=== PATIENT | male | born 1975 | race Two or more races ===

== ENCOUNTER 2025-03-23 00:01 | Emergency (ER) | payer OTHER, SELFPAY ==
[2025-03-23 00:11] VITALS: BP 150/107; PULSE 86; RESP 18; TEMP 36.8; O2SAT 95
[2025-03-23 00:12] VITALS: PULSE 90; RESP 20; O2SAT 99
[2025-03-23 00:14] VITALS: BMI 36.9
--- NOTE | 2025-03-23 00:22 | EKG_ITS ---
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: : 1975 Requested By: ED Temporary Provider Order Number: [id number] Reading MD: ED Temporary Provider Measurements Intervals [place] Rate: 69 P: 8 SD: 170 QRS: 3 QRSD: 116 T: 38 QT: 433 QTc: 466 Interpretive Statements SINUS RHYTHM LOW QRS VOLTAGE IN PRECORDIAL LEADS [QRS DEFLECTION < 1.0 mV IN CHEST LEADS] INCOMPLETE RIGHT BUNDLE BRANCH BLOCK [90+ ms QRS DURATION, TERMINAL R IN V1/V2, 40+ ms S IN I/aVL/V4/V5/V6] POSSIBLE ANTERIOR MYOCARDIAL INFARCTION , PROBABLY OLD [30 ms Q WAVE IN V3/V4, OR R < 0.2 mV IN V4] No previous ECG available for comparison /store/S0/[id number].pdf
--- NOTE | 2025-03-23 00:22 | XR_ITS ---
EXAMINATION: AP chest single view TECHNIQUE: AP portable upright chest single view Date and time: March 23, 2025, 0125 hours INDICATIONS: Shortness of breath weakness beginning today. FINDINGS: No significant cardiac enlargement. No pneumonia or pulmonary edema Old deformity of the right clavicle IMPRESSION: No active disease
[2025-03-23 00:51] LABS: Basophils # (Auto) 0.1 Thou/mm3 (0.0-0.2); Basophils % (Auto) 1 % (0-2.5); Eosinophils # (Auto) 0.3 Thou/mm3 (0.0-0.5); Eosinophils % (Auto) 4 % (0-10); Hematocrit 43.8 % (41.0-53.0); Hemoglobin 14.7 g/dL (13.5-16.0); Immature Granulocytes Auto 0.02 Thou/mm3 (0.00-0.00); Lymphocytes # (Auto) 2.4 Thou/mm3 (1.0-4.8); Lymphocytes % (Auto) 31 % (10-50); Mean Corpuscular HGB Conc 33.6 g/dl (31.0-37.0); Mean Corpuscular Hemoglobin 29.9 pg (25.0-35.0); Mean Corpuscular Volume 89 fL (80-100); Monocytes # (Auto) 1.1 Thou/mm3 (0.0-0.8); Monocytes % (Auto) 14 % (0-12); Neutrophils # (Auto) 3.9 Thou/mm3 (1.8-7.7); Neutrophils % (Auto) 50 % (37-80); Nucleated Red Blood Cell # 0.00 Thou/mm3 (0.00-0.00); Nucleated Red Blood Cell % 0 /100 WBC (0); Platelet Count 214 Thou/mm3 (140-440); RDW Standard Deviation 42.8 fL (35.1-43.9); Red Blood Count 4.91 Miln/mm3 (4.50-5.90); White Blood Count 7.8 Thou/mm3 (3.8-10.6)
[2025-03-23 01:09] LABS: INR 1.0 (0.9-1.3); Partial Thromboplastin Time 26.3 Seconds (22.0-36.0); Prothrombin Time 11.0 Seconds (9.0-12.2)
[2025-03-23 01:14] LABS: Alanine Aminotransferase 46 U/L (10-49); Albumin, Serum 4.7 gm/dL (3.5-5.0); Albumin/Globulin Ratio 1.7 (1.2-2.2); Alkaline Phosphatase 75 U/L (46-116); Anion Gap 12 (7-16); Aspartate Amino Transferase 107 U/L (0-34); BUN/Creatinine Ratio 21 Ratio (12-20); Bilirubin,Total 0.6 mg/dL (0.3-1.2); Blood Urea Nitrogen 31 mg/dL (9-23); Calcium 9.6 mg/dL (8.3-10.6); Calcium (Corrected) 9.6 mg/dL (8.5-10.1); Carbon Dioxide 25.0 mMol/L (20.0-31.0); Chloride 104 mMol/L (98-107); Creatinine (Component) 1.5 mg/dL (0.6-1.3); Estimated Creatinine Clearance 72.3 mL/min (>60); Globulin 2.7 gm/dL (2.3-3.5); Glucose 93 mg/dL (74-106); Magnesium 2.3 mg/dL (1.6-2.6); Osmolality,Calculated 287 (275-295); Potassium 4.0 mMol/L (3.4-5.1); Sodium 141 mMol/L (136-145); Total Protein 7.4 gm/dL (5.7-8.2); Troponin I < 0.020 ng/mL (0.0-0.045); eGFR 56 See Note
--- NOTE | 2025-03-23 03:34 | PD.EDWEAK ---
ED Weakness RME/HPI General Chief complaint: Abdominal Pain Stated complaint: BL Lower Quadrant Abdominal Pain Arrival date/time: 03/23/25 00:01 RME / HPI RME / HPI Narrative: DR. WAGNER MAIN ED EVALUATION: Patient presents with BL lower abdominal pain R > L, with occasional radiation to the flank. 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 No definitive fever, chills, nausea, or vomiting. PMH: CHF, HTN, CVA without significant neurological deficit PSH: Unremarkable Allergies: Penicillin Social: Negative Related Data Allergies Allergy/AdvReac Type Severity Reaction Status Date / Time Penicillins Allergy Verified 03/23/25 00:21 Review of Systems Review of Systems Systems Reviewed: All systems reviewed, normal except as documented Past Medical History Past Medical History NEUROLOGIC: Positive Cerebrovascular Accident (X2, APHASIA) CARDIAC: Positive Congestive Heart Failure and Hypertension ED Exam Narrative Physical exam: GEN. APPEARANCE: The patient is alert awake oriented X-3, c/o lower abdominal pain, lying down uncomfortably, does not look ill/toxic. Patient has good eye contact. Patient is cooperative. VITALS: All vitals were reviewed and the pulse ox is 95% on room air which is normal according to my interpretation. HEENT: Normocephalic, atraumatic. Pupils are equal and reactive. Oral mucosa is moist. Patent Nares NECK: Supple, nontender, no thyromegaly, no meningismus, no JVD, no step offs CHEST: Symmetrical, atraumatic, and with equal expansion , Nontender on palpation no deformity and no crepitus. CARDIOVASCULAR: Heart regular rhythm no murmur or gallop rub or extra beats. LUNGS: Clear to auscultation bilaterally with symmetrical chest rise. No laboring tachypnea or wheezing. No intercostal subcostal retraction. No rales and no rhonchi. ABDOMEN: Soft, obese, TTP BL LQ's, no guarding or rebound tenderness. There are no abnormal masses palpated. Active and normal bowel sounds. EXTREMITIES: Nontender. No edema. No cyanosis. Patient is able to move all 4 extremities well, with full ROM and good CSM. SKIN: Warm and dry, no jaundice or rashes noted. MUSCULOSKELETAL: No lubar or midline bony tenderness. There is no CVA tenderness. No paraspinal muscle spasm or tenderness. NEURO: Patient is CHRISTIANSEN x 4, Cranial nerves II through XII grossly intact. There is no focal neurologic deficits noted. 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 PSYCHIATRIC: Patient is in normal mood and affect, cooperative, no SI or HI or hallucinations. Course Quality Measures none Orders Category Date Time Status CT Screening NOW Care 03/23/25 03:44 Active EKG (ED ONLY) *Do not use* NOW Care 03/23/25 00:[address] abdomen pelvis w con Stat Exams 03/23/25 03:43 Taken EKG (ED Only) Stat Exams 03/23/25 00:22 Draft XR chest 1V portable Stat Exams 03/23/25 00:22 Taken CBC Stat Lab 03/23/25 00:37 Completed CMP [Comprehensive Metabolic Panel] Stat Lab 03/23/25 00:37 Completed Drug Screen,Urine Stat Lab 03/23/25 04:12 Completed Mag [Magnesium] Stat Lab 03/23/25 00:37 Completed PT [Prothrombin Time with INR] Stat Lab 03/23/25 00:37 Completed PTT [Partial Thromboplastin Time] Stat Lab 03/23/25 00:37 Completed Troponin I Stat Lab 03/23/25 00:37 Completed UA, C/S IF [Urinalysis, C/S if Indicated] Stat Lab 03/23/25 00:24 Ordered Urinalysis, C/S if Indicated Stat Lab 03/23/25 04:12 Completed Metoclopramide Inj [Reglan Inj] Med 03/23/25 03:40 Discontinued 5 mg IVP X1 ONE Morphine* Inj Med 03/23/25 03:36 Active 4 mg IVP Q1H PRN Vital Signs Vital signs: Vital Signs Temperature 98.2 F 03/23/25 00:11 Pulse Rate 86 03/23/25 00:11 Respiratory Rate 18 03/23/25 00:11 Blood Pressure 150/107 H 03/23/25 00:11 Pulse Oximetry (%) 95 03/23/25 00:11 Oxygen Delivery Method Room Air 03/23/25 00:11 Weakness MDM Narrative MDM Narrative:: Scribe Attestation: IHallie am scribing for and in the presence of Dr. Wagner. Provider Notation: Although this document has been carefully reviewed, there may still be some phonetic and other typographical errors. These errors are purely grammatical due to imperfections in the software program and should not be construed in any way to compromise the substance of the patient's medical care during this visit. Patient presents with BL lower abdominal pain R > L, with occasional radiation to the flank. 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 No definitive fever, chills, nausea, or vomiting. Please see PE findings. Laboratory markers including CBC, serum chemistries essentially unremarkable. UA with evidence of glucosuria and ketones presents, although no sign of infection. Toxicology screen positive for Amphetamines/Meth. Special studies such as abdomen/Pelvis CT demonstrates evidence of mild cirrhotic changes, although no acute process identified. CXR is unremarkable. Patient was hydrated with normal saline, administered low-dose narcotic analgesics/anti-emetics with mild to moderate relief. On seral evaluation patient is resting comfortably, considered stable for discharge after period of observation. Patient data External records reviewed:: [facility] previous records (No prior ED records available for review) Clinical information provided by:: patient Social determinants that could affect healthcare access:: none Patient has the following chronic illnesses:: HTN, CHF How is presenting disease/condition affected by chronic disease/condition?: exacerbated by Evaluation data The following diagnostics were reviewed and interpreted by me:: lab results, radiology exam(s) and EKG tracing(s) (EKG demonstrates sinus rhythm, ventricular rate of 69 bpm, no acute ST segment changes, no ventricular ectopy, leftward axis, intervals are normal, per my interpretation.) Lab and/or radiology exams considered but not ordered:: None Interpretation Summary: RADIOLOGY Chest X-Ray: Pending official radiology report. Abdomen/Pelvis CT: Findings: The lung bases are clear. The gallbladder, pancreas, spleen, kidneys and adrenals are unremarkable. Liver steatosis. Mild irregular liver margins. No evidence of bowel obstruction. The appendix is within normal limits. There is no mesenteric or retroperitoneal adenopathy. The urinary bladder is nondistended, limited evaluation. There is no free fluid or free air. No acute fractures. Bilateral L5 pars defects associated with mild anterolisthesis of the L5 and chronic disc disease L5-S1. Impression: 1. Liver steatosis and possible cirrhosis. 2. Bilateral L5 pars defects associated with mild anterolisthesis of the L5 and chronic disc disease L5-S1. Medications / Prescriptions Medications or Prescriptions considered but not ordered:: None Medication administrations:: Medication Administration History Morphine Sulfate (Morphine Sulf Inj 4 Mg/Ml Vial) 4 mg IVP Q1H PRN PRN Reason: PAIN 1-6 (mild-mod Last Admin: 03/23/25 04:25 Dose: 4 mg Documented By: LYRIC Discontinued Medications Metoclopramide HCl (Metoclopramide Inj 5 Mg/Ml Vial 2 Ml) 5 mg IVP X1 ONE; Protocol Stop: 03/23/25 03:41 Last Admin: 03/23/25 04:25 Dose: 5 mg Documented By: LYRIC See above if any Consultations Consultation(s) initiated? (list below): No Diagnosis Weakness Differential Diagnosis: acute myocardial infarction, sepsis, dehydration and other (Diverticulitis, SBO, Gastroenteritis) Most likely diagnosis given after review of the tests above:: Abdominal pain of unknown etiology, Substance abuse Admission Indicated Admission indicated?: not indicated Explain why admission is indicated or not indicated:: Patient does not meet admission criteria Admission Request Was there a request for admission?: No Disposition Plan Disposition Plan: Discharge Discharge Attestation Discharge Attestation: The patient and all family members were given an opportunity to ask questions and understood the discharge instructions. Discharge instructions specifically effects, indications for sooner follow up or return to the emergency department, and the expected course of current diagnosis. Patient condition: Stable Discharge Plan Plan Patient Disposition: HOME (Self Care) Discharge Disposition comment: Stable Prescriptions/Referrals Referrals: Other,. [Primary Care Provider, General Surgery] - In 1 week Problem List Clinical Impression: Abdominal pain of unknown etiology, Substance abuse Patient/Caregiver Discharge Instructions Print Language: Polish Stand Alone Forms: Maritza Award Info., Patient Portal Info Letter
--- NOTE | 2025-03-23 03:43 | XR_ITS ---
Examination: CT abdomen with intravenous contrast CT pelvis with intravenous contrast 2-D coronal reconstructions 2-D sagittal reconstructions Date and time of exam: March 23, 2025, 0418 hours INDICATIONS: Lower abdominal pain beginning 2 days ago.. CTDI: vol (mGy) 15.61 DLP: (mGycm) 1041 Technique: Multiple axial sections of the abdomen and pelvis have been obtained. 64 slice high-resolution scanner used. 3 mm axial sections have been obtained, post intravenous injection of 30 cc [id number] 2-D sagittal, coronal reconstructions obtained. Low dose protocols were performed. One or more of the following dose reduction techniques were used; automated exposure control, adjustment of the mA and/or KV according to patient size, use of iterative reconstruction technique. Findings: Fatty infiltration throughout the liver No gallstones Spleen is not enlarged No pancreatic or adrenal mass No renal or ureteral calculi, no hydronephrosis Normal appendix Aorta normal size. No bowel obstruction No bladder mass No significant prostatomegaly Fat-containing inguinal hernias Grade 1-2 spondylolisthesis L5 on S1 IMPRESSION: Fatty infiltration throughout the liver. No renal or ureteral calculi, no hydronephrosis Normal appendix Negative for bowel obstruction
[2025-03-23 04:21] LABS: Collection Type, Urine Clean Catch; RBC,Urine 0 /hpf (0-3); Squamous Epithelial Cell,Urine 0 /hpf (0-5); WBC,Urine 0 /hpf (0-5)
[2025-03-23] MEDS: MORPHINE SULF INJ 4 MG/ML VIAL IVP (04:25)
[2025-03-23] MEDS: METOCLOPRAMIDE INJ 5 MG/ML VIAL 2 ML IVP (04:25)
[2025-03-23 04:34] LABS: Amphetamine/Methamp Scrn,U Positive (Negative); Barbiturate Screen,Urine Negative (Negative); Benzodiazepines Screen,Urine Negative (Negative); Benzoylecgonine Screen, Ur Negative (Negative); Fentanyl Screen,Urine Negative (Negative); Opiate Screen,Urine Negative (Negative); THC Screen,Urine Negative (Negative)
[2025-03-23 04:55] LABS: Amorphous Crystals,Urine Present (Absent); Bilirubin,Urine Negative (Negative); Blood,Urine Negative (Negative); Clarity,Urine Clear (Clear/Hazy); Color,Urine Lt-Yellow (Lt Yel-Yel); Culture Indicated,Urine Not Indicated; Glucose, Urine 4+ (Negative); Ketones,Urine 1+ (Negative); Leukocyte Esterase,Urine Negative (Negative); Nitrite,Urine Negative (Negative); PH,Urine 5.5 (5.0-7.0); Protein,Urine Negative (Neg - Trace); Specific Gravity,Urine 1.032 (1.001-1.035); Urobilinogen,Urine Negative mg/dL (0.0-1.0)
--- NOTE | 2025-03-23 05:17 | PRELIM_ITS ---
CT scan of the abdomen and pelvis with intravenous contrast (axial sections with sagittal and coronal reformats). March 23, 2025 at 0418 hours Clinical History: Bilateral lower quant abdominal pain. Comparison: None available at the time of this report. Findings: The lung bases are clear. The gallbladder, pancreas, spleen, kidneys and adrenals are unremarkable. Liver steatosis. Mild irregular liver margins. No evidence of bowel obstruction. The appendix is within normal limits. There is no mesenteric or retroperitoneal adenopathy. The urinary bladder is nondistended, limited evaluation. There is no free fluid or free air. No acute fractures. Bilateral L5 pars defects associated with mild anterolisthesis of the L5 and chronic disc disease L5-S1. Impression: 1. Liver steatosis and possible cirrhosis. 2. Bilateral L5 pars defects associated with mild anterolisthesis of the L5 and chronic disc disease L5-S1. Report Electronically Signed By: Jaskaran Watters 03/23/2025 5:17:21 AM [EST]
[2025-03-23 06:12] VITALS: BP 165/105; PULSE 78; RESP 18; O2SAT 98
== END 2025-03-23 06:15 | disposition home or self-care (01) ==
PROVIDERS: Emergency Provider Emergency Medicine; PCP Family Medicine
DX: R10.9 Unspecified abdominal pain (principal); F19.10 Other psychoactive substance abuse, uncomplicated; I11.0 Hypertensive heart disease with heart failure; I50.9 Heart failure, unspecified; Z86.73 Personal history of transient ischemic attack (TIA), and cerebral infarction without residual deficits
CPT/HCPCS: 36415; 71045; 74177; 80053; 80307; 81001; 83735; 84484; 85025; 85610; 85730; 93005; 96374; 96375; 99283; A4649; J2270; J2765; Q9967